=== PATIENT | female | born 1985 | race African-American/Black ===

== ENCOUNTER 2017-05-16 09:12 | Emergency (ER) | payer MEDICAID, OTHER ==
[~2017-05-16] VITALS: Ht 172.7 cm; Wt 67.0 kg
[2017-05-16 09:15] VITALS: BP 131/92; PULSE 94; RESP 16; TEMP 98.3; O2SAT 100
[2017-05-16] MEDS ORDERED: IBUP1TAB7 PO (11:02)
[2017-05-16] MEDS ORDERED: ROBA750T PO (11:02)
--- NOTE | 2017-05-16 11:02 | PD ---
HPI Chief Complaint: Pain: Acute or Chronic Time Seen by Provider: 10:42 Travel History International Travel<30 days: No Contact w/Intl Traveler<30days: No Traveled to known affect area: No History of Present Illness HPI 32-year-old female presents to the emergency room for evaluation of sharp, stabbing back pain that started yesterday. Patient states she injured her back about 3 weeks ago while pushing an extremely heavy piece of work equipment. She had pain in her legs, arms, and back for several days following that injury but it has since subsided. States the back pain started again yesterday without any new trauma or injury. She states pain is worsened with deep breathing, external rotation of the shoulders, and twisting her back. It improves at rest. She took aspirin this morning without significant relief in symptoms. PFSH Past Medical History Medical History: Denies Significant Hx ?: Not LMP: LAST MONTH Past Surgical History Surgical History: No Previous Surgery Social History Alcohol Use: Yes (OCCASIONAL) Tobacco Use: Yes (1-2 BLACK AND MILDS PER DAY) Substance Use: No Allergies-Medications (Allergen,Severity, Reaction): Coded Allergies: No Known Allergies (Unverified Adverse Reaction, Unknown, 05/16/17) Reported Meds & Prescriptions Reported Meds & Active Scripts Active Ibuprofen 800 Mg Tab 800 Mg PO Q8H PRN Robaxin (Methocarbamol) 750 Mg Tab 750 Mg PO Q8HR 5 Days Review of Systems Except as stated in HPI: all other systems reviewed are Neg Physical Exam Narrative GENERAL: Well-nourished, well-developed female in no acute distress. Afebrile. Ambulatory. SKIN: Focused skin assessment warm/dry. No erythema or ecchymosis. HEAD: Normocephalic. EYES: No scleral icterus. No injection or drainage. NECK: Supple, trachea midline. No JVD or lymphadenopathy. CARDIOVASCULAR: Regular rate and rhythm without murmurs, gallops, or rubs. RESPIRATORY: Breath sounds equal bilaterally. No accessory muscle use. No crackles, rales, wheezes, or rhonchi. CHEST: Nontender throughout without deformity or crepitus. No retractions or use of accessory muscles. BACK: No CVA tenderness. No rash. Mild tenderness on palpation of the upper thoracic spine. Data Data Last Documented VS Vital Signs Date Time Temp Pulse Resp B/P (MAP) Pulse Ox O2 Delivery O2 Flow Rate FiO2 05/16/17 09:15 98.3 94 16 131/92 (105) 100 Orders Orders Chest, Pa & Lat (05/16/17 ) [facility] Medical Decision Making Medical Screen Exam Complete: Yes Emergency Medical Condition: Yes Medical Record Reviewed: Yes Differential Diagnosis Muscle strain, muscle spasm, pneumothorax, fracture unlikely Narrative Course 32-year-old female presents to the emergency room for evaluation of sharp, stabbing, thoracic back pain for the past day. She injured her back 3 weeks ago while pushing extremely heavy piece of equipment but the pain went away until yesterday. States she had to leave work early today because the pain as severe. Worsened with certain range of motion and deep breathing. Tenderness to palpation of the upper thoracic paraspinous musculature. No crepitus or obvious deformity of the ribs. Lung sounds clear and equal bilaterally. No increased work of breathing. Chest x-ray is negative. This is muscle strain. Patient discharged with ibuprofen and Robaxin and told to follow up with PCP or return for worsening symptoms. She understands and agrees to plan. Diagnosis Primary Impression: Muscle strain Referrals: Primary Care Physician Additional Instructions: Rest and drink plenty of fluids. Take Robaxin as directed, as needed for pain. Take ibuprofen with food as directed, as needed for pain. Apply ice to the affected area for 20 minutes at a time, as needed for pain and swelling. Follow-up with a primary care physician. Return to the emergency room for worsening symptoms. Med/Other Pt SpecificInfo: Prescription(s) given Scripts Ibuprofen (Ibuprofen) 800 Mg Tab 800 MG PO Q8H Y for Pain/Inflammation, #15 TAB 0 Refills Prov: Casandra Allison DO 05/16/17 Methocarbamol (Robaxin) 750 Mg Tab 750 MG PO Q8HR for Muscle Spasm for 5 Days, TAB 0 Refills Prov: Casandra Allison DO 05/16/17 Disposition: 01 DISCHARGE HOME Condition: Stable Arabella Edwards May 16, 2017 11:01
--- NOTE | 2017-05-16 12:22 | RADRPT ---
EXAM DATE/TIME: 05/16/2017 11:01 [place] COMPARISON: No previous studies available for comparison. INDICATIONS : Left posterior middle rib pain for 3 weeks. Push/pull injury. MEDICAL HISTORY : None. SURGICAL HISTORY : None. ENCOUNTER: Initial ACUITY: 3 weeks PAIN SCORE: 7/10 LOCATION: Left posterior middle ribs, T5-6 FINDINGS: PA and lateral views of the chest demonstrate the lungs to be symmetrically aerated without evidence of mass, infiltrate or effusion. The cardiomediastinal contours are unremarkable. Osseous structure s are intact. CONCLUSION: Normal examination. Chase Bartlett MD on May 16, 2017 at 12:19 Board Certified Radiologist. This report was verified electronically.
== END 2017-05-16 12:41 | disposition home or self-care (01) ==
LOC: NEPK 09:12
DX: S29.012A Strain of muscle and tendon of back wall of thorax, initial encounter (principal); X50.9XXA Other and unspecified overexertion or strenuous movements or postures, initial encounter; Y93.89 Activity, other specified
CPT/HCPCS: 71020; 99283

== ENCOUNTER 2017-06-07 08:17 | Emergency (ER) | payer MEDICAID ==
[~2017-06-07] VITALS: Ht 175.3 cm; Wt 75.0 kg
[~2017-06-07 08:17] MED LIST: IBUP1TAB7 PO; ROBA750T PO
[2017-06-07 08:27] VITALS: BP 124/81; PULSE 68; RESP 18; TEMP 98; O2SAT 100
[2017-06-07] MEDS ORDERED: SODIUM CHLOR 0.9% 1000 ML INJ 1,000 ML IV ONE (08:30)
--- NOTE | 2017-06-07 08:34 | PD ---
HPI Chief Complaint: Dizziness Time Seen by Provider: 08:30 Travel History International Travel<30 days: No Contact w/Intl Traveler<30days: No Traveled to known affect area: No History of Present Illness HPI 32-year-old female presents with tingling to her fingertips and feeling lightheaded while she was at work today. She states she gets this intermittently. She states she has no pain, difficulty breathing or other concurrent complaints. She denies specific modifying factors. She states her last menstrual cycle was 4 days before [place] and she has an IUD. Quality is lightheaded. Severity is improving here. She presents by ambulance. Vitals were stable in route. [facility] Past Medical History Anxiety: Yes Past Surgical History Other Surgery: Yes (iud) Social History Alcohol Use: Yes (OCCASIONAL) Tobacco Use: Yes (1-2 BLACK AND MILDS PER DAY) Substance Use: Yes (occasional marijuana) Allergies-Medications (Allergen,Severity, Reaction): Coded Allergies: No Known Allergies (Unverified Adverse Reaction, Unknown, 06/07/17) Reported Meds & Prescriptions Reported Meds & Active Scripts Active No Active Prescriptions or Reported Medications Review of Systems Except as stated in HPI: all other systems reviewed are Neg Physical Exam Narrative GENERAL: Well-nourished, well-developed patient. SKIN: Warm and dry. HEAD: Normocephalic and atraumatic. EYES: No injection or drainage. ENT: No nasal drainage noted. NECK: Supple, trachea midline. CARDIOVASCULAR: Regular rate and rhythm RESPIRATORY: Breath sounds equal bilaterally. No accessory muscle use. GASTROINTESTINAL: Abdomen soft, non-tender, nondistended. EXTREMITIES: No edema. NEUROLOGICAL: Awake and alert. Motor and sensory grossly within normal limits. Normal speech. Data Data Last Documented VS Vital Signs Date Time Temp Pulse Resp B/P (MAP) Pulse Ox O2 Delivery O2 Flow Rate FiO2 06/07/17 09:27 68 19 129/76 (93) 100 Room Air 06/07/17 08:27 98.0 Orders Orders Magnesium (Mg) (06/07/17 08:30) Complete Blood Count With Diff (06/07/17 08:30) Basic Metabolic Panel (Bmp) (06/07/17 08:30) Iv Access Insert/Monitor (06/07/17 08:30) Ed Urine Pregnancytest Poc (06/07/17 08:30) Sodium Chlor 0.9% 1000 Ml Inj (Ns 1000 M (06/07/17 08:30) Potassium Chloride Eff (K-Lyte Cl Eff) (06/07/17 10:30) Blood Glucose (06/07/17 10:16) Labs Laboratory Tests Test 06/07/17 08:40 White Blood Count 4.0 TH/MM3 Red Blood Count 4.84 MIL/MM3 Hemoglobin 10.8 GM/DL Hematocrit 33.7 % Mean Corpuscular Volume 69.6 FL Mean Corpuscular Hemoglobin 22.3 PG Mean Corpuscular Hemoglobin Concent 32.1 % Red Cell Distribution Width 18.2 % Platelet Count 428 TH/MM3 Mean Platelet Volume 8.5 FL CBC Comment AUTO DIFF Differential Total Cells Counted 100 Neutrophils % (Manual) 53 % Lymphocytes % 36 % Monocytes % 10 % Eosinophils % 1 % Neutrophils # (Manual) 2.1 TH/MM3 Differential Comment FINAL DIFF MANUAL Platelet Estimate NORMAL Platelet Morphology Comment NORMAL Ovalocytes 1+ Blood Urea Nitrogen 8 MG/DL Creatinine 0.67 MG/DL Random Glucose 70 MG/DL Calcium Level 8.6 MG/DL Magnesium Level 1.8 MG/DL Sodium Level 137 MEQ/L Potassium Level 3.1 MEQ/L Chloride Level 106 MEQ/L Carbon Dioxide Level 22.6 MEQ/L Anion Gap 8 MEQ/L Estimat Glomerular Filtration Rate 123 ML/MIN [facility] Medical Decision Making Medical Screen Exam Complete: Yes Emergency Medical Condition: Yes Medical Record Reviewed: Yes (past history confirmed) Interpretation(s) CBC & BMP Diagram 06/07/17 08:40 Calcium Level 8.6, Magnesium Level 1.8 accucheck is 73 Differential Diagnosis Anemia, electrolyte abnormality, Narrative Course Will check blood work, beta test and dose with IV fluids and reevaluate labs with mild hypokalemia, given replacement, Patient denies any new complaints and states that they are feeling better. Patient happy with care, all questions answered. Patient knows that follow up is incumbent on them and to return to the emergency room immediately if new or worsening symptoms develop. Patient given strict return precautions, vitals reviewed and are normal , agrees to further workup as an outpatient. Diagnosis Primary Impression: Lightheadedness Patient Instructions: General Instructions Additional Instructions: return as needed, follow with primary this week, keep hydrated Med/Other Pt SpecificInfo: No Change to Meds Scripts No Active Prescriptions or Reported Meds Disposition: 01 DISCHARGE HOME Condition: Stable Aminah Bar MD Jun 07, 2017 08:34
[2017-06-07 09:11] LABS: HEMATOCRIT 33.7 % (35.0-46.0); HEMOGLOBIN 10.8 GM/DL (11.6-15.3); MEAN CELL VOLUME 69.6 FL (80.0-100.0); MEAN CORPUSCULAR HEMOGLOBIN 22.3 PG (27.0-34.0); MEAN CORPUSCULAR HGB CONC 32.1 % (32.0-36.0); MEAN PLATELET VOLUME 8.5 FL (7.0-11.0); PLATELET COUNT 428 TH/MM3 (150-450); RED BLOOD COUNT 4.84 MIL/MM3 (4.00-5.30); RED CELL DISTRIBUTION WIDTH 18.2 % (11.6-17.2)
[2017-06-07 09:12] LABS: BICARBONATE 22.6 MEQ/L (21.0-32.0); CALCIUM 8.6 MG/DL (8.5-10.1); CREATININE 0.67 MG/DL (0.50-1.00); MAGNESIUM 1.8 MG/DL (1.5-2.5)
[2017-06-07 09:27] VITALS: BP 129/76; PULSE 68; RESP 19; O2SAT 100
[2017-06-07 10:08] LABS: LYMPHOCYTES 36 % (9-44); MONOCYTES 10 % (0-8); NEUTROPHIL # MANUAL DIFF 2.1 TH/MM3 (1.8-7.7); POLYS (SEG NEUTROPHILS) 53 % (16-70)
[2017-06-07 10:10] LABS: OVALOCYTES 1+ (NORMAL)
[2017-06-07] MEDS ORDERED: POTASSIUM CHLORIDE 25 MEQ EFFERVESCENT TAB PO ONE (10:30)
[2017-06-07 11:14] VITALS: BP 124/88; PULSE 65; RESP 16; O2SAT 100
== END 2017-06-07 11:20 | disposition home or self-care (01) ==
LOC: NEPE 08:17
DX: R42 Dizziness and giddiness (principal); F17.200 Nicotine dependence, unspecified, uncomplicated; F12.90 Cannabis use, unspecified, uncomplicated; E87.6 Hypokalemia
CPT/HCPCS: 80048; 83735; 84703; 85007; 85027; 96360; 99281; J7030